=== PATIENT | male | born 1985 | race Two or more races ===

== ENCOUNTER 2018-02-08 20:09 | Emergency (ER) | payer MEDICAID ==
[2018-02-08 20:16] VITALS: BP 124/87
[2018-02-08] MEDS ORDERED: TDAP ADULT 0.5 ML INJ (BOOSTRIX) IM ONE (20:16)
--- NOTE | 2018-02-08 20:38 | EDPHY ---
H & P Stated Complaint: Fishing hook R thumb 1949 today. Time Seen by Provider: 02/08/18 20:13 HPI/ROS: CHIEF COMPLAINT: Fish hook in right thumb HISTORY OF PRESENT ILLNESS: This is a 32-year-old male as a fish hook embedded in the tip of his right thumb, palmar aspect. This occurred just over an hour ago. He is not certain of his tetanus status. No numbness or weakness of his right thumb. REVIEW OF SYSTEMS: No recent cough or cold, fever, abdominal pain, vomiting or diarrhea, constipation, chest pain or trouble breathing. Past medical history: Negative Past surgical history: Negative Social history: He lives with his . General Appearance: Alert. Vital signs reviewed. Focused exam performed. Respiratory: Lungs are clear to auscultation; no wheezes, rales, or rhonchi. Cardiovascular: Regular rate and rhythm; no murmur, rub, or gallop. Skin: Warm and dry, no rashes on exposed skin, normal color. Extremities: There is a fissure combat it in the pad of his right thumb. No active bleeding. Sensation is intact to light touch. Neurological: Alert and oriented. Moving all four extremities easily and equally. Psychiatric: Normal affect. - Personal History Current Tetanus/Diphtheria Vaccine: Unsure Current Tetanus Diphtheria and Acellular Pertussis (TDAP): Unsure - Medical/Surgical History Hx Asthma: No Hx Chronic Respiratory Disease: No Hx Diabetes: No Hx Cardiac Disease: No Hx Renal Disease: No Hx Cirrhosis: No Hx Alcoholism: No Hx HIV/AIDS: No Hx Splenectomy or Spleen Trauma: No Other PMH: Denies - Social History Smoking Status: Never smoked Constitutional: Initial Vital Signs Temperature (C) 36.7 C 02/08/18 20:12 Heart Rate 58 L 02/08/18 20:12 Respiratory Rate 16 02/08/18 20:12 Blood Pressure 124/87 H 02/08/18 20:12 O2 Sat (%) 97 02/08/18 20:12 O2 Delivery Mode Room Air Allergies/Adverse Reactions: No Known Allergies Allergy (Verified 02/08/18 20:14) Home Medications: Medication Instructions Recorded NK [No Known Home Meds] 02/08/18 Medical Decision Making Procedures: Removal of foreign body from right thumb. A digital block using the lidocaine 1% was performed. The debi of the fishhook was advanced through the pad of his thumb. The debi was cut off with a metal window screen assembler. The fishhook was then backed out of his thumb. There was minimal bleeding. He tolerated the procedure well. ED Course/Re-evaluation: Fish hook was removed from right thumb. Thumb was then re-examined. He had full range of motion at the MCP and DIP. Sensation is intact. Thumb was washed. - Data Points Medications Given: Discontinued Medications Diphtheria/Tetanus/Acell Pertussis (Boostrix) 0.5 ml IM .ONCE ONE Stop: 02/08/18 20:17 Last Admin: 02/08/18 20:23 Dose: 0.5 ml Departure - Departure Disposition: Home, Routine, Self-Care Clinical Impression: Fish hook injury of finger of right hand Qualifiers: Encounter type: initial encounter Qualified Code(s): S69.91XA - Unspecified injury of right wrist, hand and finger(s), initial encounter Condition: Good Instructions: Soft Tissue Foreign Body (ED) Additional Instructions: Watch carefully for signs of infection.Adult Pain & Fever Control: We recommend Acetaminophen (Tylenol) and Ibuprofen (Motrin,Advil) for pain and fever control. When fever is high or pain severe, both drugs can be used at the same time, but at different intervals. Please note the time differences. Your dose is: Acetaminophen 650mg every 4 to 6 hours Ibuprofen 400mg every 6 hours with food OR Note: do not take Acetaminophen with Hydrocodone (Vicodin, Lortab) or Oycodone (Percocet). These medications also contain Acetaminophen. No more than 3000mg of Acetaminophen should be taken in 24 hours (for an adult). Referrals: YOAN WORRELL [Other] - As per Instructions
== END 2018-02-08 20:51 | disposition home or self-care (01) ==
LOC: CED 20:09
DX: S69.91XA Unspecified injury of right wrist, hand and finger(s), initial encounter (principal); Z23 Encounter for immunization; W45.8XXA Other foreign body or object entering through skin, initial encounter